=== PATIENT | female | born 1970 | race Caucasian/White ===

== ENCOUNTER → 2017-08-29 | Outpatient (CLI) | payer OTHER ==
[~2017-08-29] MED LIST: AMBIEN10 MG PO; ASPIR 8181 MG PO; B COMPLEX1 EACH; B COMPLEX1 EACH PO; BENTYL20 MG PO; BUPROPION HCL200 MG PO; DIAZEPAM10 MG PO; DIVALPROEX SOD250 MG PO; FENOFIBRATE PO; FIORINAL 50-321 EACH PO; FLOMAX0.4 MG PO; FLUOXETINE HCL40 MG PO; FUROSEMIDE40 MG PO; GABAPENTIN300 MG PO; HYDROCODON-ACE1 EA12; HYDROCODON-ACE1 EA12 PO; INDERAL LA80 MG PO; LEVOCETIRIZINE D5 MG PO; LOFIBRA160 MG PO; LOVASTATIN40 MG PO; MAGNESIUM250 MG PO; MECLIZINE HCL25 MG PO; MELOXICAM15 MG PO; MOBIC7.5 MG PO; MULTIVITAMINS1 EAC8; ONCE DAILY1 EACH PO; OSTERA TABLET1 EACH PO; PENTASA500 MG PO; PROAIR HFA INH8.5 GM INH; PROMETHAZINE HC25 M1 PO; PROPRANOLOL HCL; PROPRANOLOL HCL40 MG; PROPRANOLOL HCL80 M1 PO; PROZAC40 MG PO; RISPERIDONE1 MG PO; SOMA350 MG PO; THORAZINE25 MG PO; TOPIRAMATE100 MG PO; TROSPIUM CHLORI20 MG PO; VENLAFAXINE HCL75 MG PO; VIT C-BIOFLAVO1 EACH PO; VITAMIN C1000 MG PO; VITAMIN D-32000 UNIT PO; ZOFRAN8 MG PO; ZOLPIDEM TARTRA10 MG PO
--- NOTE | 2017-08-29 11:05 | Diagnostic Imaging Report ---
PROCEDURE:ABDOMEN-1VIEW (KUB) TECHNIQUE:Supine AP abdomen INDICATION:Calculus of kidney COMPARISON:[facility], CT, CT ABDOMEN/PELVIS WO, 08/29/2017, 10:43. FINDINGS: See conclusion. CONCLUSION: 1. 0.7 cm left inferior pole stone partially obscured by the left 11th rib. 2. Normal bowel gas pattern. 3. Intact skeleton with L5-S1 transpedicular fusion. Dictated by: Regan Landers M.D. on 08/29/2017 at 11:05 Electronically approved by: Regan Landers M.D. on 08/29/2017 at 11:05
--- NOTE | 2017-08-29 11:14 | Diagnostic Imaging Report ---
PROCEDURE: CT ABDOMEN AND PELVIS WITHOUT CONTRAST COMPARISON:None. INDICATIONS:Left-sided calculus of kidney. Low back pain. TECHNIQUE: Stone protocol Volumetric CT abdomen and pelvis. No intravenous or enteric contrast. Multiplanar reformatted images. DLP: 801.5 to FINDINGS: Clear lung bases. No pleural effusions. Normal heart size. Liver: Diffuse low-attenuation. Craniocaudal span 20 cm. Gallbladder: Cholecystectomy. No bile duct dilation. Pancreas: Normal Spleen: Normal Adrenal glands: Normal Urinary bladder: Normal Uterus and adnexa: Hysterectomy. 4.7 cm left adnexal cyst. Kidneys: Right: Normal. No stones. Normal ureter. Left: 0.7 cm inferior pole nonobstructive stones. Otherwise, normal. Normal ureter. Bowel: Normal caliber. Peritoneum: Normal Vasculature: Normal caliber. Lymph nodes: Normal Skeleton: Intact. L5-S1 transpedicular screw-plate fixation without conspicuous abnormality. Soft tissues: Normal CONCLUSION: 1. Nonobstructive 7 mm left inferior pole nephrolithiasis. 2. 4.7 cm left adnexal cyst, presumed benign given stability since 2013. 3. Hepatomegaly with steatosis. Dictated by: Regan Landers M.D. on 08/29/2017 at 11:13 Electronically approved by: Regan Landers M.D. on 08/29/2017 at 11:13
== END ==
LOC: CT 10:11
PROVIDERS: ATTEND Urology
DX: N20.0 Calculus of kidney (principal)
CPT/HCPCS: 74018; 74176

== ENCOUNTER → 2017-09-06 | Day surgery (SDC) | payer OTHER ==
[2017-09-05 10:45] LABS: BASOPHILS % 0.6 % (0.0-1.0); EOSINOPHILS # (AUTO) 0.3 (0.0-0.4); EOSINOPHILS % 4.4 % (0.0-6.0); HEMATOCRIT 41.9 % (34.2-44.1); HEMOGLOBIN 13.7 g/dL (12.0-16.0); LYMPHOCYTES % 58.9 % (18.0-39.1); MEAN CORPUSCULAR HEMOGLOBIN 30.4 pg (28-32); MEAN CORPUSCULAR HGB CONC 32.7 g/dL (31-35); MEAN CORPUSCULAR VOLUME 92.9 fL (81-99); MONOCYTES # (AUTO) 0.3 (0.2-0.8); MONOCYTES % 4.4 % (4.4-11.3); NEUTROPHILS # (AUTO) 2.2 (2.1-6.9); NEUTROPHILS % 31.6 % (38.7-80.0); PLATELET COUNT 324 x10e3/uL (140-360); RED BLOOD COUNT 4.51 x10e6/uL (3.6-5.1); RED CELL DISTRIBUTION WIDTH 12.5 % (11.7-14.4)
[2017-09-05 11:01] LABS: CREATININE, SERUM 1.37 mg/dL (0.57-1.11)
[~2017-09-06] MED LIST changes: +BELLADONNA/OPIUM 60 MG SUPP PR ONE; +CEFTRIAXONE SOD 1 GM VIAL ONE; +DEXAMETHASONE SOD PHOS INJ 4 MG/ML VIAL ONE; +FENTANYL CITRATE/PF 100MCG/2 ML INJ ONE; +IOPAMIDOL 610MG/1ML 300 MG/ML VIAL IV ONE; +LIDOCAINE HCL 2% LOCAL INJ 5 ML SDV VIAL INJ ONE; +MIDAZOLAM HCL 2 MG/2 ML VIAL ONE; +ONDANSETRON HCL INJ 2 MG/ML VIAL ONE; +PROPOFOL IV EMULSION 10 MG/ML 20 ML VIAL ONE; +ROCURONIUM BROMIDE 10 MG/ML 5ML VIAL ONE; +SEVOFLURANE INHAL SOLN 250 ML PEN BTL ONE
--- OUTSIDE RECORDS SUMMARY | 2017-09-06 07:09 | XMS REPORT ---
Author Author [facility] Address Unknown Phone Unavailable Care Team Providers Care Digital Experience Manager Name Role Phone PB GARCIA Unavailable Unavailable Problems This patient has no known problems. Allergies, Adverse Reactions, Alerts This patient has no known allergies or adverse reactions. Medications This patient has no known medications. Results Test Description Test Time Test Comments Text Results Atomic Results Result Comments ABDOMEN-1VIEW (KUB) [place] [address] Patient Name: YARON HOLLAND MR #: [id number] : 1970 Age/Sex: 46/F Req #: [id number] [facility] Physician: Ordered by: PB GARCIA MD Report #: [id number] Location: CT Room/Bed: Procedure: [id number] DX/ABDOMEN-1VIEW (KUB) Exam Date: 08/29/17 Exam Time: 1020 REPORT STATUS: Signed PROCEDURE: ABDOMEN -1VIEW (KUB) TECHNIQUE: Supine AP abdomen INDICATION: Calculus of kidney COMPARISON: [facility], CT, CT ABDOMEN/PELVIS WO, , 10:43. FINDINGS: See conclusion. CONCLUSION: 1. 0.7 cm left inferior pole stone partially obscured by the left 11th rib. 2. Normal bowel gas pattern. 3. Intact skeleton with L5-S1 transpedicular fusion. Dictated by: Beata Landers M.D. on 08/29/2017 at 11: 05 Electronically approved by: Beata Landers M.D. on 08/29/2017 at 11:05 Dictated By: BEATA LANDERS MD 1105 Transcribed By: AMBROSE on 08/29/17 1105 COPY TO: PB GARCAI MD CT ABDOMEN/PELVIS WO [place] [address] Patient Name: YARON HOLLAND MR #: [id number] : 1970 Age/Sex: 46/F Req #: [id number] Adm Physician: Ordered by: PB GARCIA MD Report #: [id number] Location: CT Room/Bed: Procedure: [id number] CT/CT ABDOMEN/PELVIS WO Exam Date: 08/29/17 Exam Time: 1020 REPORT STATUS: Signed PROCEDURE: CT ABDOMEN AND PELVIS WITHOUT CONTRAST COMPARISON: None. INDICATIONS: Left- sided calculus of kidney. Low back pain. TECHNIQUE: Stone protocol Volumetric CT abdomen and pelvis. No intravenous or enteric contrast. Multiplanar reformatted images. DLP: 801.5 to FINDINGS: Clear lung bases. No pleural effusions. Normal heart size. Liver: Diffuse low- attenuation. Craniocaudal span 20 cm. Gallbladder: Cholecystectomy. No bile duct dilation. Pancreas: Normal Spleen: Normal Adrenal glands: Normal Urinary bladder: Normal Uterus and adnexa: Hysterectomy. 4.7 cm left adnexal cyst. Kidneys: Right: Normal. No stones. Normal ureter. Left: 0.7 cm inferior pole nonobstructive stones. Otherwise, normal. Normal ureter. Bowel: Normal caliber. Peritoneum: Normal Vasculature: Normal caliber. Lymph nodes: Normal Skeleton: Intact. L5-S1 transpedicular screw-plate fixation without conspicuous abnormality. Soft tissues: Normal CONCLUSION: 1. Nonobstructive 7 mm left inferior pole nephrolithiasis. 2. 4.7 cm left adnexal cyst, presumed benign given stability since 2013. 3. Hepatomegaly with steatosis. Dictated by: Beata Landers M.D. on 08/29/2017 at 11:13 Electronically approved by: Beata Landers M.D. on 08/29/2017 at 11:13 Dictated By: BEATA LANDERS MD 1113 Transcribed By: AMBROSE on 08/29/17 1113 COPY TO: PB GARCIA MD
--- NOTE | 2017-09-06 10:21 | Diagnostic Imaging Report ---
PROCEDURE: X-RAY CHEST, TWO VIEWS COMPARISON: None. INDICATIONS: PRE OPERATIVE CHEST X-RAY FOR KIDNEY STONES FINDINGS: LUNGS: No consolidations or edema. PLEURA: No effusions or pneumothorax. HEART \T\ MEDIASTINUM: The heart is within normal size-limits. BONES \T\ SOFT TISSUES: No acute findings. 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 CONCLUSION: No acute thoracic abnormality. Dictated by: Justin Phillips M.D. on 09/06/2017 at 10:22 Electronically approved by: Justin Phillips M.D. on 09/06/2017 at 10:22
--- NOTE | 2017-09-06 10:25 | Diagnostic Imaging Report ---
PROCEDURE:X-RAY ABDOMEN - KUB COMPARISON:CT abdomen and pelvis, KUB both 08/29/2017. INDICATIONS:PRE OPERATIVE KUB FOR KIDNEY STONES FINDINGS: 7 mm left lower pole renal calculus described on the comparison examinations is less conspicuous on the current study, likely related to overlying bowel gas and large bowel contents. No additional suspicious calcifications. Nonobstructive bowel gas pattern. Transpedicular fusion of L4-L5. Cholecystectomy clips. CONCLUSION: Left lower pole renal calculus described on the comparison examination is obscured on the current study. Dictated by: Justin Phillips M.D. on 09/06/2017 at 10:25 Electronically approved by: Justin Phillips M.D. on 09/06/2017 at 10:25
--- NOTE | 2017-10-19 00:10 | Operative Report ---
DATE OF PROCEDURE: September 06, 2017 PREOPERATIVE DIAGNOSES: 1. Urinary tract infections. 2. Mixed-type urinary incontinence. POSTOPERATIVE DIAGNOSES: 1. Urinary tract infections. 2. Mixed-type urinary incontinence. 3. Left nephrolithiasis. 4. Grade 2 cystocele. 5. Urethral hypermobility. 6. Mild rectocele. 7. Atrophic (senile) vaginitis. OPERATIONS PERFORMED: 1. Cystourethroscopy with bilateral ureteral catheterization and retrograde ureteropyelography (separate procedure performed for the urinary tract infections). 2. Interpretation of retrograde ureteropyelography. 3. Supervision of fluoroscopy, no radiologist present. 4. Left ureteroscopy with stone manipulation (separate procedure performed for the nephrolithiasis, done with a separate scope). 5. Radiological services for supervision and interpretation of ureteroscopy. 6. Pelvic examination under anesthesia. ANESTHESIA: General. COMPLICATIONS: None. CLINICAL SUMMARY: Jonathan Ivy is a 46-year-old woman with the above preoperative diagnoses. She is brought for the above procedures. She is aware of the risks of bleeding, infection, injury to adjacent structures, need for additional procedures, and elected to proceed. OPERATIVE PROCEDURE IN DETAIL: Informed consent was verified. Jonathan Ivy was properly identified, taken to the operating room and placed on the cystoscopy table in supine position. Anesthesia was uneventfully begun. The patient was then carefully and gently repositioned in the dorsal lithotomy position with all pressure points well padded. Her genitalia were prepared and draped in usual sterile fashion. The 22.5-Malaysian cystoscope sheath with the obturator in place was atraumatically inserted in patient's urethra and the bladder was drained. Panendoscopy of the urinary bladder revealed no suspicious mucosal lesions, no tumors, no stones, and no diverticula. Normally positioned and configured ureteral orifices were identified. An 8-Malaysian catheter was used to cannulate each ureter, and retrograde ureteral pyelograms were performed. A guidewire was then placed into the left ureter and guided to the level of the patient's kidney. The flexible ureteroscope was then brought up over the guidewire and guided to the level of the patient's left kidney. Panendoscopy of the intrarenal collecting systems revealed Avi's plaques, it also revealed fine sand. No significantly sized stone fragments were identified. No stone fragments that could be grasped with the basket were large enough to grab. We irrigated this fine sand and manipulated it and we saw it as it dislodged from the kidney and some of it ended up in the ureter. We carefully examined the ureter as we exited and we saw some fine sand within the ureter, which should be passable. Due to the fact that this was extremely atraumatic and a small fiberoptic ureteroscope was utilized, there was no need for ureteral stenting due to the fact that there was no stone large enough to obstruct. We hope the sand is not pack as the patient passes it and cause obstruction. Interpretation of retrograde ureteropyelography: Contrast was instilled in retrograde fashion bilaterally. There were no hydronephrosis, there were no tumors, there were no visible calcifications. There was a filling defect noted upon retrograde pyelograms in the lower pole of the left kidney. This later proved to be sand in a papilla and not really significantly sized stones. Unobstructed drainage was observed bilaterally fluoroscopically. Patient's bladder was then drained. The cystoscope was withdrawn. Pelvic examination under anesthesia revealed grade 2 cystocele. There was urethral hypermobility. There was a mild rectocele and there was atrophic (senile) vaginitis. The patient was then uneventfully reversed from anesthesia and taken to recovery room in stable condition. There were no complications to the procedure. She tolerated the procedure well. Explicit postoperative instructions were given. Will follow the patient up in the office. Job#: [id number] cc:SHARON TORREZ DO
== END | disposition home or self-care (01) ==
LOC: OR 07:07
PROVIDERS: ATTEND Urology
DX: N20.0 Calculus of kidney (principal); N39.0 Urinary tract infection, site not specified; N28.89 Other specified disorders of kidney and ureter; N18.9 Chronic kidney disease, unspecified; R35.1 Nocturia; N39.46 Mixed incontinence; N81.10 Cystocele, unspecified; N36.41 Hypermobility of urethra; N81.6 Rectocele; N95.2 Postmenopausal atrophic vaginitis; Z88.2 Allergy status to sulfonamides; Z88.8 Allergy status to other drugs, medicaments and biological substances; Z91.048 Other nonmedicinal substance allergy status; I69.398 Other sequelae of cerebral infarction; R53.1 Weakness; J45.909 Unspecified asthma, uncomplicated; K76.0 Fatty (change of) liver, not elsewhere classified; E66.01 Morbid (severe) obesity due to excess calories; F31.9 Bipolar disorder, unspecified; F20.9 Schizophrenia, unspecified; F17.200 Nicotine dependence, unspecified, uncomplicated; Z79.82 Long term (current) use of aspirin; Z68.34 Body mass index [BMI] 34.0-34.9, adult; Z84.1 Family history of disorders of kidney and ureter
CPT/HCPCS: 36415; 52352; 71046; 74018; 74420; 80048; 83970; 84550; 85025; 93005; J0696; J1100; J2001; J2250; J2405; Q9967

== ENCOUNTER → 2021-01-06 | Day surgery (SDC) | payer MEDICARE, OTHER ==
[2021-01-04 13:00] LABS: BASOPHILS # (AUTO) 0.1 (0.0-0.1); BASOPHILS % 0.8 % (0.0-1.0); EOSINOPHILS # (AUTO) 0.2 (0.0-0.4); EOSINOPHILS % 2.6 % (0.0-6.0); HEMATOCRIT 43.5 % (34.2-44.1); HEMOGLOBIN 14.3 g/dL (12.0-16.0); LYMPHOCYTES # (AUTO) 2.3 (1.0-3.2); LYMPHOCYTES % 36.2 % (18.0-39.1); MEAN CORPUSCULAR HEMOGLOBIN 29.7 pg (28-32); MEAN CORPUSCULAR HGB CONC 32.9 g/dL (31-35); MEAN CORPUSCULAR VOLUME 90.4 fL (81-99); MONOCYTES # (AUTO) 0.3 (0.2-0.8); NEUTROPHILS # (AUTO) 3.5 (2.1-6.9); NEUTROPHILS % 55.8 % (38.7-80.0); PLATELET COUNT 309 x10e3/uL (140-360); RED BLOOD COUNT 4.81 x10e6/uL (3.6-5.1); RED CELL DISTRIBUTION WIDTH 12.7 % (11.7-14.4)
[2021-01-04 13:14] LABS: CALCIUM 9.9 mg/dL (8.4-10.2); CREATININE, SERUM 1.01 mg/dL (0.57-1.11)
[~2021-01-06] MED LIST changes: -BELLADONNA/OPIUM 60 MG SUPP PR ONE; +BUPIVACAINE HCL 0.5% INJ 30 ML VIAL INJ ONE; -CEFTRIAXONE SOD 1 GM VIAL ONE; +CLINDAMYCIN 300MG 50 ML IV ONE; +GENTAMICIN 80MG/NS 100 ML 100 ML IV ONE; -IOPAMIDOL 610MG/1ML 300 MG/ML VIAL IV ONE; +LIDOCAINE 2% /EPINEPHRINE 20 ML SDV INJ ONE; -ONDANSETRON HCL INJ 2 MG/ML VIAL ONE; +ONDANSETRON HCL INJ 2MG/ML 2ML 2 MG/ML VIAL ONE; +PHENYLEPHRINE HCL 1% 10 MG/ML VIAL ONE; +POVIDONE IODINE 0.05% 0.05 % ML PO ONE; -ROCURONIUM BROMIDE 10 MG/ML 5ML VIAL ONE; +SUCCINYLCHOLINE CHLORIDE 20 MG/ML 10ML VIAL ONE
[2021-01-06 15:10] VITALS: BP 115/72
== END | disposition home or self-care (01) ==
LOC: OR 09:29
PROVIDERS: ATTEND Urology
DX: T85.113A Breakdown (mechanical) of implanted electronic neurostimulator, generator, initial encounter (principal); N39.46 Mixed incontinence; E11.22 Type 2 diabetes mellitus with diabetic chronic kidney disease; N18.9 Chronic kidney disease, unspecified; N32.81 Overactive bladder; N39.44 Nocturnal enuresis; R35.1 Nocturia; N39.0 Urinary tract infection, site not specified; N81.89 Other female genital prolapse; N95.2 Postmenopausal atrophic vaginitis; G47.33 Obstructive sleep apnea (adult) (pediatric); J44.9 Chronic obstructive pulmonary disease, unspecified; E66.9 Obesity, unspecified; F31.9 Bipolar disorder, unspecified; F20.9 Schizophrenia, unspecified; F17.200 Nicotine dependence, unspecified, uncomplicated; Y83.8 Other surgical procedures as the cause of abnormal reaction of the patient, or of later complication, without mention of misadventure at the time of the procedure; Z88.2 Allergy status to sulfonamides; Z88.8 Allergy status to other drugs, medicaments and biological substances; Z91.048 Other nonmedicinal substance allergy status; Z01.810 Encounter for preprocedural cardiovascular examination; Z01.812 Encounter for preprocedural laboratory examination; Z01.818 Encounter for other preprocedural examination; Z79.84 Long term (current) use of oral hypoglycemic drugs; Z87.442 Personal history of urinary calculi; Z84.1 Family history of disorders of kidney and ureter
CPT/HCPCS: 36415 ×2; 64581; 64590; 71046; 76000; 80048; 82948; 85025; 88300; 93005; 95972; C1776; J0330; J1100; J1580; J2001 ×2; J2250; J2370; J2405; J2704; J3010; L8679

== ENCOUNTER → 2023-05-31 | Outpatient (REF) | payer MEDICARE ==
[~2023-05-31] MED LIST changes: +ACETAMINOPHEN-1 EAC4 PO; +ALBUTEROL0.63 MG/3 NEB; -BUPIVACAINE HCL 0.5% INJ 30 ML VIAL INJ ONE; +BUTALBITAL-ASA1 EACH PO; -CLINDAMYCIN 300MG 50 ML IV ONE; -DEXAMETHASONE SOD PHOS INJ 4 MG/ML VIAL ONE; +DIAZEPAM5 MG PO; +DICYCLOMINE HCL20 MG PO; +DIVALPROEX SOD250 M1 PO; +FENOFIBRATE145 MG PO; -FENTANYL CITRATE/PF 100MCG/2 ML INJ ONE; -GENTAMICIN 80MG/NS 100 ML 100 ML IV ONE; -LIDOCAINE 2% /EPINEPHRINE 20 ML SDV INJ ONE; -LIDOCAINE HCL 2% LOCAL INJ 5 ML SDV VIAL INJ ONE; +LOVASTATIN40 MG; +MECLIZINE HCL12.5 MG PO; -MIDAZOLAM HCL 2 MG/2 ML VIAL ONE; -ONDANSETRON HCL INJ 2MG/ML 2ML 2 MG/ML VIAL ONE; -PHENYLEPHRINE HCL 1% 10 MG/ML VIAL ONE; -POVIDONE IODINE 0.05% 0.05 % ML PO ONE; +PROPANOLOL ER PO; -PROPOFOL IV EMULSION 10 MG/ML 20 ML VIAL ONE; +QUETIAPINE FUMA25 MG PO; -SEVOFLURANE INHAL SOLN 250 ML PEN BTL ONE; -SUCCINYLCHOLINE CHLORIDE 20 MG/ML 10ML VIAL ONE; +TAMSULOSIN HCL0.4 MG PO; +VENLAFAXINE HCL75 M2 PO; +VENTOLIN HFA18 GM IH; +mesalamine PO
== END ==
LOC: MERGE 11:55 → RAD 11:55
PROVIDERS: ATTEND Urology
DX: Z45.42 Encounter for adjustment and management of neurostimulator (principal)
CPT/HCPCS: 74018